=== PATIENT | male | born 1935 | race Caucasian/White ===

== ENCOUNTER 2018-01-20 12:58 | Emergency (ER) | payer MEDICARE | END 2018-01-20 14:00 | disposition home or self-care (01) | LOC: M ED 12:58 | DX: M54.5 Low back pain (principal); G89.29 Other chronic pain; I25.10 Atherosclerotic heart disease of native coronary artery without angina pectoris; I10 Essential (primary) hypertension; Z87.442 Personal history of urinary calculi; Z87.891 Personal history of nicotine dependence; Z79.899 Other long term (current) drug therapy; Z79.82 Long term (current) use of aspirin | CPT/HCPCS: 99282 ==

== ENCOUNTER → 2018-01-28 | Outpatient (CLI) | payer MEDICARE | LOC: M RAD 10:28 | DX: M51.26 Other intervertebral disc displacement, lumbar region (principal); M48.061 Spinal stenosis, lumbar region without neurogenic claudication | CPT/HCPCS: 72148 ==

== ENCOUNTER → 2018-02-18 | Outpatient (CLI) | payer MEDICARE | LOC: M RAD 10:30 | DX: M25.551 Pain in right hip (principal) | CPT/HCPCS: 78315 ==

== ENCOUNTER 2020-01-17 16:53 | Emergency (ER) | payer MEDICARE ==
[~2020-01-17] VITALS: Ht 167.6 cm; Wt 76.4 kg
[2020-01-17 17:56] LABS: BASO # 0.1 10^3/uL (0.0-0.2); BASO % 0.7 % (0.0-1.0); EOS # 0.2 10^3/uL (0.0-0.5); EOS % 2.3 % (0.0-3.0); HEMATOCRIT 37.9 % (42.0-52.0); HEMOGLOBIN 12.6 g/dl (13.5-17.5); LYMPH # 1.5 10^3/uL (1.5-5.0); LYMPH % 20.8 % (24.0-44.0); MEAN CORPUSCULAR HEMOGLOBIN 30.4 pg (27.0-33.0); MEAN CORPUSCULAR HGB CONC 33.2 g/dl (32.0-36.5); MEAN CORPUSCULAR VOLUME 91.5 fl (80.0-96.0); MONO # 0.6 10^3/uL (0.0-0.8); MONO % 7.7 % (0.0-5.0); NEUTROPHILS # 4.8 10^3/uL (1.5-8.5); NEUTROPHILS % 68.2 % (36.0-66.0); PLATELET COUNT, AUTOMATED 198 10^3/uL (150-450); RED BLOOD COUNT 4.14 10^6/uL (4.30-6.10); WHITE BLOOD COUNT 7.1 10^3/uL (4.0-10.0)
[2020-01-17 18:27] LABS: ALBUMIN 3.7 GM/DL (3.2-5.2); BILIRUBIN,DIRECT 0.2 MG/DL (0.0-0.2); BILIRUBIN,TOTAL 0.6 MG/DL (0.2-1.0); THYROID STIMULATING HORMONE 2.04 uIU/ML (0.358-3.740); TOTAL PROTEIN 7.2 GM/DL (6.4-8.2)
[2020-01-17 18:31] VITALS: BP 176/77
--- NOTE | 2020-01-17 20:42 | ECGEPIP ---
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
--- NOTE | 2020-01-18 01:19 | REP ---
CHEST, SINGLE VIEW: There is no evidence of acute infiltrate. No pleural effusion is seen. The heart is normal in size. The mediastinal silhouette is unremarkable. The visualized osseous structures are intact. IMPRESSION: No acute pulmonary disease. Electronically Signed by Thomas Lee MD 01/18/2020 09:50 A
== END 2020-01-17 18:49 | disposition home or self-care (01) ==
LOC: M ED 16:53
DX: R00.1 Bradycardia, unspecified (principal); I10 Essential (primary) hypertension; I25.2 Old myocardial infarction; E78.5 Hyperlipidemia, unspecified; M54.5 Low back pain; Z95.5 Presence of coronary angioplasty implant and graft; Z85.46 Personal history of malignant neoplasm of prostate; Z79.82 Long term (current) use of aspirin; Z79.899 Other long term (current) drug therapy

== ENCOUNTER → 2020-01-17 | Outpatient (CLI) | payer MEDICARE ==
[~2020-01-17] MED LIST: ACET-654 PO; ALEN70TA74 PO; ASPI325T PO; BRIL1TAB PO; CARV3.12 PO; CLIN300C PO; CLOP75TA2 PO; COLA100C5 PO; FINA5TAB2 PO; FLOM0.4C39 PO; LIPI80TA PO; LOSA50TA88 PO; PERC5TAB12 PO; RANE1000 PO; TAMS0.4C PO; TIZA4TAB4 PO; [UNRECOGNIZED DRUG - CODE] PO; [UNRECOGNIZED DRUG - CODE] PO
--- NOTE | 2020-01-17 16:13 | REP ---
Right small finger series: Four views. History: Injury. Findings: Four views of the right small finger demonstrate an obliquely oriented overriding fracture of the diaphysis of the proximal phalanx with associated soft-tissue swelling. There is 2-1/2 mm of override. No opaque foreign body seen. Impression: Obliquely oriented fracture proximal phalanx small finger. Electronically Signed by Alexis Amor MD 01/17/2020 04:04 P
== END ==
LOC: M LRY 15:42
PROVIDERS: ATTEND Nurse Practitioner Family
DX: S62.610A Displaced fracture of proximal phalanx of right index finger, initial encounter for closed fracture (principal); W19.XXXA Unspecified fall, initial encounter; Y92.9 Unspecified place or not applicable